=== PATIENT | female | born 1995 | race Asian ===

== ENCOUNTER 2016-10-10 23:36 | Emergency (ER) | payer OTHER ==
[2016-10-10 23:47] VITALS: TEMP 36.6
[2016-10-11] MEDS ORDERED: IBUPROFEN 600 MG TAB PO STA (00:08)
[2016-10-11] MEDS ORDERED: HYDROCODONE/ACETAMOPHEN 5/325MG TAB PO ONE (00:15)
[2016-10-11] MEDS ORDERED: NORCO 5/325MG HOME PACK PO ONE (01:30)
[2016-10-11 01:35] VITALS: BP 102/77; PULSE 67; O2SAT 95
--- NOTE | 2016-10-11 05:12 | EMERGENCY ROOM VISIT NOTE ---
History First contact with patient: 00:02 Chief Complaint: BACK PAIN Stated Complaint: SPINE HURTS History of Present Illness The patient is a 21 year old female who presents to the Emergency Room with complaints of left-sided midback pain that began about 30 minutes prior to arrival. The patient states that she was seated in her chair at her desk, and when she went to stand she developed a tightness across her back. She states that certain positions and range of motion worsens her discomfort. She is not experiencing headache, neck pain, lightheadedness, dizziness, chest pain, or shortness of breath. She does not recall distinct injury or trauma. No numbness or paresthesias. She has not had difficulty using the bathroom. She rates her discomfort a 7/10. Review of Systems More than 10 systems were reviewed and otherwise negative with the exception of history of present illness. Past Medical/Surgical History No chronic medical disease Social History Smoking Status: Never Smoker Housing Status: lives with family Current/Historical Medications No Active Prescriptions or Reported Meds Allergies Coded Allergies: No Known Allergies (Unverified , 10/11/16) Physical Exam Vital Signs Date Time Temp Pulse Resp B/P Pulse Ox O2 Delivery O2 Flow Rate FiO2 10/11/16 01:35 67 18 102/77 95 10/10/16 23:47 36.6 85 20 118/88 99 Room Air Pain Rating (0-10): 0 Physical Exam VITALS: Vitals are noted on the nurse's note and reviewed by myself. Vital signs stable. GENERAL: Well-developed, well-nourished, female, who is in no acute distress and resting comfortably. Patient is cooperative with the examination. HEAD: Normocephalic atraumatic. NECK: Supple without nuchal rigidity. No lymphadenopathy. No thyromegaly. Cervical spine is nontender. HEART: Regular rate and rhythm without murmurs gallops or rubs. LUNGS: Clear to auscultation bilaterally without wheezes, rales or rhonchi. No retractions or accessory muscle use. MUSCULOSKELETAL: No muscle atrophy, erythema, or edema noted. Positive tenderness appreciated throughout the left mid thoracic spine into the left scapula consistent with spasm. Range of motion of the shoulder does exacerbate patient tenderness. No lesions or rash noted. Medical Decision & Procedures Medications Administered Medications (Trade) Dose Ordered Sig/Rosalee Route Start Time Stop Time Status Last Admin Dose Admin Ibuprofen (Motrin Tab) 600 mg NOW STAT PO 10/11/16 00:08 10/11/16 00:11 DC 10/11/16 00:16 600 MG Acetaminophen/ Hydrocodone Bitart ([place] 5/325 Tab) 1 tab NOW ONCE PO 10/11/16 00:15 10/11/16 00:16 DC 10/11/16 00:16 1 TAB Acetaminophen/ Hydrocodone Bitart ([place] 5/325mg Home Pack) 1 homepack UD ONCE PO 10/11/16 01:30 10/11/16 01:31 DC 10/11/16 01:31 1 HOMEPACK ED Course Physical exam and history were performed. Nursing notes and EMR were reviewed. Patient appears to have left-sided mid thoracic pain after stepping up from her desk. On exam she does have reproducible tenderness on palpation. Her symptoms appear to be worsened with certain range of motion. The patient was given oral ibuprofen and Vicodin here in the department. X-ray was performed and does not show acute process. Overall the patient appears stable for discharge home. I suspect her symptoms are musculoskeletal in nature and should improve with conservative management. The patient is to follow-up with [facility] or her primary care physician with any ongoing or persistent symptoms. The chart was completed utilizing [employer] Speech Voice Recognition Software. Grammatical errors, random word insertions, pronoun errors, and incomplete sentences are an occasional consequence of this system due to software limitations, ambient noise, and hardware issues. Any formal questions or concerns about the content, text, or information contained within the body of this dictation should be directly addressed to the provider for clarification. . Medical Decision Differential diagnosis includes, but is not limited to: Sprain, strain, fracture , dislocation, subluxation, contusion, spasm, and others Impression Primary Impression: Left-sided back pain Departure Information Dispostion Home / Self-Care Condition GOOD Prescriptions No Active Prescriptions or Reported Meds Forms HOME CARE DOCUMENTATION FORM, IMPORTANT VISIT INFORMATION Patient Instructions [facility] Additional Instructions You were seen and evaluated today on an emergency basis only. This is not a substitute for, or an effort to provide, complete comprehensive medical care. It is not possible to recognize and treat all injuries or illnesses in a single emergency department visit. For this reason it is recommended that you followup with [facility] for your primary care physician this week for ongoing care and evaluation. [place] (hydrocodone/acetaminophen) 5/325 mg (homepack) every 6 hours as needed for worsening breakthrough pain. Do not drink or drive on [place]. This medication will likely make you tired. Do not take [place] and Tylenol at the same time as both contain acetaminophen. [place] may cause constipation. You may wish to take an [id number] stool softener like Colace if this occurs. For baseline pain relief you may alternate ibuprofen and acetaminophen every 4 hours for pain control. Take 600 mg ibuprofen (Advil) and then 4 hours later take 1000 mg acetaminophen (Tylenol). Do not take more than 3000 mg acetaminophen in a single day. You are welcome to return to the emergency department anytime with new, worsening, or concerning symptoms.
--- NOTE | 2016-10-11 07:21 | DIAGNOSTIC IMAGING REPORT ---
THORACIC SPINE 3 VIEWS ROUTINE CLINICAL HISTORY: Left side thoracic spine pain COMPARISON STUDY: No previous studies for comparison. FINDINGS: There is slight rightward curvature of the thoracic spine which may be positional. No acute thoracic spine fracture is identified. Vertebral body heights are maintained. Disc spaces are preserved. IMPRESSION: 1. No significant abnormality of the thoracic spine. 2. Mild rightward curvature of the thoracic spine which may be positional. Electronically signed by: Kameron Kahn M.D. 10/11/2016 7:20 AM Dictated Date/Time: 10/11/2016 7:19 AM
== END 2016-10-11 01:35 | disposition home or self-care (01) ==
LOC: C.EDB 23:40 → C.EDC 10-11 01:35
DX: M54.6 Pain in thoracic spine (principal)